=== PATIENT | female | born 1940 | race Caucasian/White ===

== ENCOUNTER → 2022-02-16 | Outpatient (CLI) | payer MEDICARE ==
[2016-07-22 07:00] VITALS: BP 117/49
[~2022-02-16] MED LIST: CITA20TA6 PO; LEVO88TA4 PO; LISI10TA16 PO; LOVA20TA2 PO; OMEP20TA91 PO; OXYC1TAB7 PO; REGADENOSON 0.4 MG/5 ML DISP.SYRIN. IV ONE
[2022-02-16 10:09] LABS: GFR 53.1; POTASSIUM 4.9 mmol/L (3.5-5.1)
--- NOTE | 2022-02-16 15:55 | CARD ---
MR#: [id number] Date of Study: 02/16/2022 Ordering Physician: RASHMI DRAKE, Referring Physician: RASHMI DRAKE, Tech: JAKE PALMER APPROVED REPORT EXAM: Two-dimensional and M-mode echocardiogram with Doppler and color Doppler. Other Information Quality : AverageHR: 69bpm Rhythm : NSR INDICATION Dyspnea 2D DIMENSIONS RVDd3.4 (2.9-3.5cm)Left Atrium(2D)3.3 (1.6-4.0cm) IVSd1.2 (0.7-1.1cm)Aortic Root(2D)3.3 (2.0-3.7cm) LVDd4.8 (3.9-5.9cm)LVOT Diameter2.4 (1.8-2.4cm) PWd1.0 (0.7-1.1cm)LVDs3.4 (2.5-4.0cm) FS (%) 29.8 %SV61.1 ml Aortic Valve AoV Peak Jori.136.6cm/[place] Peak GR.8.9mmHg LVOT Peak Jori.93.2cm/sAVA (VMAX)3.17cm2 AI P 1/2 [id number] Mitral Valve MV E Dzslnjjk17.9cm/sMV DECEL [id number] MV A Kprfdptf62.5cm/sE/A Ratio0.9 Pulmonary Valve PV Peak Jgdxujrp899.3cm/s Pulmonary Vein S1 Treowumo89.1cm/sD2 Miqvpdfb63.2cm/s PVa cjhhrusm44bgee LEFT VENTRICLE The left ventricle is normal size. There is normal left ventricular wall thickness. Left ventricular systolic function is normal. The left ventricular ejection fraction is 55 to 60% No regional wall mot ion abnormalities noted. The left ventricular diastolic function is normal. No left ventricle thrombu s noted on this study. There is no ventricular septal defect visualized. There is no left ventricular aneurysm. There is no mass noted in the left ventricle. RIGHT VENTRICLE The right ventricle is normal size. There is normal right ventricular wall thickness. The right ventr icular systolic function is normal. ATRIA The left atrium size is normal. The right atrium size is normal. The interatrial septum is intact wit h no evidence for an atrial septal defect or patent foramen ovale as noted on 2-D or Doppler imaging. AORTIC VALVE The aortic valve is normal in structure and function. Doppler and Color Flow revealed no significant aortic regurgitation. There is no significant aortic valvular stenosis. There is no aortic valvular v egetation. MITRAL VALVE The mitral valve is mildly thickened. There is no evidence of mitral valve prolapse. There is no mitr al valve stenosis. Doppler and Color-flow revealed trace to mild mitral regurgitation. TRICUSPID VALVE The tricuspid valve is normal in structure and function. There is no tricuspid valve regurgitation no samantha. There is no tricuspid valve prolapse or vegetation. There is no tricuspid valve stenosis. PULMONIC VALVE The pulmonary valve is normal in structure and function. There is no pulmonic valvular regurgitation. There is no pulmonic valvular stenosis. GREAT VESSELS The aortic root is normal in size. The ascending aorta is normal in size. The pulmonary artery is nor mal. The IVC is normal in size and collapses >50% with inspiration. PERICARDIAL EFFUSION There is no pleural effusion. The pericardium appears normal. Critical Notification Critical Value: No <Conclusion> The left ventricle is normal size. Left ventricular systolic function is normal. The left ventricular ejection fraction is 55 to 60% Doppler and Color Flow revealed no significant aortic regurgitation. There is no significant aortic valvular stenosis. Doppler and Color-flow revealed trace to mild mitral regurgitation. There is no tricuspid valve regurgitation noted. Signed by : Cachorro Back MD Electronically Approved : 02/16/2022 15:54:38
--- NOTE | 2022-02-16 16:44 | RAD ---
MR#: [id number] Date of Study: 02/16/2022 Ordering Physician: RASHMI DRAKE, Referring Physician: LINDSAY COYNE Tech: RT Rossi (R) (N) APPROVED REPORT Test Type: Pharmacological Stress Nurse/Tech: Nafisa Churchill R.N. Test Indications: dyspnea Cardiac History: htn Medications: see ehr Medical History: see ehr, R masectomy Resting ECG: sb Resting Heart Rate: 56 bpm Resting Blood Pressure: 155/59mmHg Pretest Chest Pain: No chest pain Nurse/Tech Notes lungs cta, heart tones regular Consent: The procedure was explained to the patient in lay terms. Informed consent was witnessed. Chris eout was entered into [employer]. History and Stress Test performed by KIESHA Gresham, JOSE ALFREDO (R) (N) Pharm. Details Pharmacologic stress testing was performed using 0.4mg per 5ml of regadenoson given intravenously ove r 7-10 seconds. Stress Symptoms No chest pain or symptoms.Dyspnea POST EXERCISE Reason for Termination: Infusion complete Target HR: No Max HR: 87 bpm Max Blood Pressure: 138/54mmHg Chest Pain: No. Arrhythmia: No. ST Change: No. INTERPRETATION Stress EKG Conclusion: The resting EKG shows a sinus rhythm with T wave changes in V1 and V2 as well as aVR. The stress EKG shows no significant changes from baseline. No EKG evidence of stress-induced ischemia. Imaging Protocol IMAGE PROTOCOL: Rest Tc-99m/stress Tc-99m 1 day Rest: Stress: Viability: Radiopharm.Tc99m [id number] Sestamibi Dose10.3mCi 33mCi Duration 15min. 10min. Img Date 02/16/2022 02/16/2022 Inj-Img Ugiv75luz. 60min. Rest Admin Site:IV - Left AntecubitalAdministrator:RT Rossi (R)(N) Stress Admin Site: IV - Left AntecubitalAdministrator: KIESHA Gresham, JOSE ALFREDO (R)(N) STRESS DATA End Diast. Vol.58.0mlAv. Heart Rate64.0bpm End Syst. Vol.9.0mlCO Index BSA0.0L/min Myocardial Djbb094.0gEject. Imwcznbm83.0% Stress Rates Pk. Fill Rate2.98EDV/secLVtime Pk. Fill 228.48msec Pk. Empty Rate5.07ESV/secLVtime Pk. Chtmr673.29msec 1/3 Pk. Fill0.98EDV/sec Stress Scores Regional WT0.00Summed WT2.00 Regional WM0.00Summed WM0.00 LV Perfusion The stress scans showed no significant defects. The rest scans showed no significant defects. Nuclear imaging shows no reversible ischemia or infarct. Wall Motion Left ventricular systolic function is normal with an ejection fraction of greater than 70%. LV Perf. Quant 17 Seg. SSS0.00 17 Seg. SRS0.00 17 Seg. SDS0.00 Stress Defect Extent (% LAD)0.00Rest Defect Extent (% LAD)0.00Rev. Defect Extent (% LAD)0.00 Stress Defect Extent (% LCX) 0.00Rest Defect Extent (% LCX)0.00Rev. Defect Extent (% LCX)0.00 Stress Defect Extent (% RCA)0.00Rest Defect Extent (% RCA)0.00Rev. Defect Extent (% RCA)0.00 Stress Defect Extent (% ANNIA)0.00Rest Defect Extent (% ANNIA)0.00Rev. Defect Extent (% ANNIA)0.00 Conclusion 1. Mildly abnormal baseline EKG but no EKG evidence of stress-induced ischemia. 2. Nuclear imaging shows no reversible ischemia or infarct. 3. Intact LV systolic function with an ejection fraction of greater than 70%. 4. Low risk Lexiscan nuclear stress test. Signed by : Cachorro Back MD Electronically Approved : 02/16/2022 16:44:31
== END ==
LOC: NM 09:49
PROVIDERS: ATTEND Internal Medicine Cardiovascular Disease
DX: R94.31 Abnormal electrocardiogram [ECG] [EKG] (principal); I34.0 Nonrheumatic mitral (valve) insufficiency; R06.00 Dyspnea, unspecified
CPT/HCPCS: 36415; 78452; 80048; 83880; 93017; 93306; A9500; J2785; C8929